=== PATIENT | female | born 1985 | race Caucasian/White ===

== ENCOUNTER 2024-12-02 08:00 | Outpatient (RCR) | payer MEDICAID, SELFPAY ==
[2024-11-30 11:56] LABS: HCG Qualitative,Urine Negative
--- NOTE | 2024-12-01 08:00 | XR_ITS ---
Examination: Nuclear medicine thyroid scan with uptake values Date and time: December 01, 2024 0806 hours INDICATIONS: Difficulty swallowing 4 weeks, diagnosis thyroid nodule on thyroid sonogram August 28, 2010 TECHNIQUE AND FINDINGS: Oral administration 275 uCi [id number] 6 hour 24 uptake values recorded as well as anterior oblique scans 6 hour uptake 15.9% normal range 6-24% 24 hour uptake 24.1% normal range 10-36% Thyroid scans demonstrate large partially cold nodule right thyroid lobe IMPRESSION: Normal uptake values Large cold right thyroid nodule
== END 2024-12-07 23:59 | disposition home or self-care (01) ==
LOC: SNUC 08:00
PROVIDERS: PCP Physician Assistant; Referring Provider Physician Assistant; Visit Provider Physician Assistant
DX: E04.1 Nontoxic single thyroid nodule (principal); Z32.00 Encounter for pregnancy test, result unknown
CPT/HCPCS: 78013; 81025; A9516